=== PATIENT | female | born 1975 | race Two or more races ===

== ENCOUNTER 2018-02-07 19:15 | Emergency (ER) | payer SELFPAY ==
[~2018-02-07] VITALS: Ht 170.2 cm; Wt 50.0 kg
[2018-02-07] MEDS ORDERED: ONDANSETRON HCL 4MG/2ML VIAL IV STA (23:03)
[2018-02-07] MEDS ORDERED: SODIUM CHLORIDE 0.9% 1,000 ML IV ONE (23:03)
[2018-02-07] MEDS ORDERED: KETOROLAC 30MG/ML VIAL IV ONE (23:15)
[2018-02-07 23:30] LABS: HEMATOCRIT. 40.7 % (36.0-48.0); HEMOGLOBIN. 13.8 g/dL (12.0-16.0); MEAN CORPUSCULAR HEMOGLOBIN 31.3 pg (28.0-32.0); MEAN PLATELET VOLUME 10.3 fl (7.4-10.4); PLATELET 201 x1000/uL (130-400); RED BLOOD CELL COUNT 4.42 mill/uL (4.2-5.4); RED CELL DISTRIBUTION WIDTH 14.8 % (11.6-14.6)
[2018-02-07 23:37] LABS: PROTHROMBIN TIME 10.7 sec (9.4-11.6)
[2018-02-07 23:43] LABS: CHLORIDE 103 mEq/L (98-107)
[2018-02-07 23:45] LABS: HCG SCREEN NEGATIVE
[2018-02-08 00:03] LABS: CLARITY URINE TURBID (CLEAR); COLOR URINE ORANGE (YELLOW); KETONES URINE 2+ (NEGATIVE); LEUKOCYTE ESTERASE URINE 1+ (NEGATIVE); NITRITE URINE NEGATIVE (NEGATIVE); OCCULT BLOOD URINE 3+ (NEGATIVE); PROTEIN URINE 1+ (NEGATIVE); SPECIFIC GRAVITY URINE 1.023 (1.005-1.030)
[2018-02-08] MEDS ORDERED: IOHEXOL-300 100 ML BOTTLE ONE (01:41)
[2018-02-08 02:12] LABS: PLATELET ESTIMATE NORMAL
[2018-02-08] MEDS ORDERED: HYDROCODONE/ACETAMINOPHEN 5/325MG TABLET PO ONE (04:00)
[2018-02-08] MEDS ORDERED: ONDANSETRON 4MG ODT PO ONE (04:00)
[2018-02-08 04:45] VITALS: BP 120/74
== END 2018-02-08 05:00 | disposition home or self-care (01) ==
LOC: ER 20:50
DX: N13.2 Hydronephrosis with renal and ureteral calculous obstruction (principal); K57.90 Diverticulosis of intestine, part unspecified, without perforation or abscess without bleeding
CPT/HCPCS: 36415; 74177; 80053; 81003; 81025; 83690; 84703; 85025; 85610; 96361; 96374; 96375; 99285; J1885; J2405; J7030; Q0162; Q9967; Z7610